=== PATIENT | female | born 1950 | race African-American/Black ===

== ENCOUNTER 2019-08-03 07:57 | Emergency (ER) | payer MEDICARE, MEDICAID ==
[~2019-08-03] VITALS: Ht 157.5 cm; Wt 74.0 kg
[2019-08-03 08:55] VITALS: BP 151/80
== END 2019-08-03 09:50 | disposition home or self-care (01) ==
LOC: ER 07:57
DX: M54.42 Lumbago with sciatica, left side (principal); M51.27 Other intervertebral disc displacement, lumbosacral region; R03.0 Elevated blood-pressure reading, without diagnosis of hypertension
CPT/HCPCS: 99281; 99283